=== PATIENT | female | born 1980 | race Caucasian/White ===

== ENCOUNTER 2017-07-07 12:27 | Emergency (ER) | payer BC ==
[~2017-07-07] VITALS: Ht 165.1 cm; Wt 61.2 kg
[~2017-07-07 12:27] MED LIST: MERINA VG; NITR100C15 PO; PHEN-895 PO
[2017-07-07 12:46] VITALS: BP 120/72
[2017-07-07] MEDS ORDERED: IBUPROFEN 600 MG TABLET PO ONE ×2 (13:26→13:30)
== END 2017-07-07 14:52 | disposition home or self-care (01) ==
LOC: ER 12:29
DX: J11.1 Influenza due to unidentified influenza virus with other respiratory manifestations (principal); Z90.49 Acquired absence of other specified parts of digestive tract; Z90.89 Acquired absence of other organs
CPT/HCPCS: 71010; 87804 ×2; 99285; A4606; Z7610; 87400

== ENCOUNTER 2017-11-30 02:45 | Emergency (ER) | payer BC ==
[~2017-11-30] VITALS: Ht 160 cm; Wt 64.9 kg
[2017-11-30 02:53] VITALS: BP 115/79
[2017-11-30] MEDS ORDERED: TDAP [DIPH/PERTUSSIS/TET] 0.5 ML VIAL IM ONE ×2 (03:17→03:30)
== END 2017-11-30 04:19 | disposition home or self-care (01) ==
LOC: ER 02:48 → EDBD 02:48 → ER 04:19
DX: S61.411A Laceration without foreign body of right hand, initial encounter (principal); Z90.49 Acquired absence of other specified parts of digestive tract; Z90.89 Acquired absence of other organs; W25.XXXA Contact with sharp glass, initial encounter; Y93.89 Activity, other specified; Y92.89 Other specified places as the place of occurrence of the external cause; Y99.8 Other external cause status
CPT/HCPCS: 12001; 73130; 90471; 90715; 99284; A4606; A6402; Z7610

== ENCOUNTER 2020-06-13 15:57 | Emergency (ER) | payer BC ==
[~2020-06-13] VITALS: Ht 172.7 cm; Wt 67.1 kg
[2020-06-13 16:00] VITALS: BP 110/75
--- NOTE | 2020-06-13 16:11 | NUR ---
Bibs from home to er bed 7. aaox4. not in resp distress, breathig even and unlabored. Satting 98% on ra. Ambulatory. Came in for cough, sore throat, headache and fever since monday. Pt is afebrile upon presentation. Awaiting MD for eval.
--- NOTE | 2020-06-13 16:35 | NUR ---
covid swab done and sent to lab
--- NOTE | 2020-06-13 16:36 | NUR ---
Patient discharged to home in stable condition. Written and verbal after care instructions given. Patient verbalizes understanding of instruction. Pt ambulatory with a steady gait
--- NOTE | 2020-06-16 07:34 | NUR ---
CALLED NO ANSWER, LEFT A VOICEMAIL.
== END 2020-06-13 16:39 | disposition home or self-care (01) ==
LOC: ER 15:59
DX: U07.1 COVID-19 (principal); J06.9 Acute upper respiratory infection, unspecified; R51.9 Headache, unspecified; Z90.49 Acquired absence of other specified parts of digestive tract
CPT/HCPCS: 99283; C9803; U0003

== ENCOUNTER 2023-07-15 13:55 | Emergency (ER) | payer OTHER ==
[~2023-07-15] VITALS: Ht 162.6 cm; Wt 68.5 kg
[~2023-07-15 13:55] MED LIST changes: +IBUP-1955 PO; +MENT1LOZ19 PO; +PROM118S5 PO
[2023-07-15] MEDS ORDERED: ACETAMINOPHEN ES 500 MG TABLET PO ONE (15:30)
[2023-07-15] MEDS ORDERED: BENZONATATE 100 MG CAPSULE PO PRN (15:30)
[2023-07-15] MEDS ORDERED: GUAI1TBM19 PO (15:32)
[2023-07-15] MEDS ORDERED: BENZ-13 PO (15:32)
[2023-07-15] MEDS ORDERED: BENZONATATE 100 MG CAPSULE PO ONE (16:01)
[2023-07-15] MEDS ORDERED: ACETAMINOPHEN ES 500 MG TABLET ONE (16:01)
[2023-07-15 19:15] VITALS: BP 122/67; TEMP 98.2; O2SAT 99
== END 2023-07-15 19:15 | disposition home or self-care (01) ==
LOC: ER 13:58
DX: J06.9 Acute upper respiratory infection, unspecified (principal); Z90.49 Acquired absence of other specified parts of digestive tract; Z20.822 Contact with and (suspected) exposure to COVID-19; Z79.899 Other long term (current) drug therapy
CPT/HCPCS: 71045-TC